=== PATIENT | female | born 1975 | race Caucasian/White ===

== ENCOUNTER 2018-02-17 16:15 | Inpatient (IN) | payer MEDICAID, OTHER ==
[2018-02-17 16:59] LABS: URINE SOURCE CLEAN C
[2018-02-17 17:06] LABS: URINE BILIRUBIN LARGE (NEGATIVE); URINE BLOOD NEGATIVE (NEGATIVE); URINE GLUCOSE (UA) 100 mg/dL (NEGATIVE); URINE KETONE 15 mg/dL (NEGATIVE); URINE LEUKOCYTE ESTERASE TRACE (NEGATIVE); URINE MICROSCOPIC INDICATED? YES; URINE NITRATE POSITIVE (NEGATIVE); URINE PH 6.5 (4.6 - 8.0); URINE PROTEIN 100 mg/dL (NEGATIVE)
[2018-02-17 17:07] LABS: HEMATOCRIT 33.2 % (41.0-60); HEMOGLOBIN 11.6 gm/dL (12-16); MEAN CELL VOLUME 95.8 fl (81-100); MEAN CORPUSCULAR HEMOGLOBIN 33.5 pg (27.0-31.0); MEAN PLATELET VOLUME 7.4 fl; PLATELET COUNT 390 Th/cmm (150-400); RED BLOOD COUNT 3.47 Mil/cmm (3.80-5.10); RED CELL DISTRIBUTION WIDTH 18.8 % (11.5-20.0)
[2018-02-17 17:14] LABS: URINE CLARITY HAZY (CLEAR); URINE COLOR ORANGE
[2018-02-17 17:15] LABS: URINE BACTERIA 3+ /hpf (NONE SEEN); URINE EPITHELIAL CELLS MODERATE /lpf (FEW); URINE RBC 0-2 /hpf (0-5)
[2018-02-17 17:17] LABS: WHITE BLOOD COUNT 21.4 Th/cmm (4.8-10.8)
[2018-02-17 17:22] LABS: ALB/GLOB RATIO 0.7 (1.0-1.8); ALBUMIN 2.6 gm/dL (3.7-5.3); ALKALINE PHOSPHATASE 179 U/L (34-104); AMYLASE SERUM 16 U/L (29-103); ANION GAP 11.2 (7.0-16.0); BUN - UREA NITROGEN 5 mg/dL (7-25); CALCIUM SERUM 8.2 mg/dL (8.6-10.3); CARBON DIOXIDE 21.5 mEq/L (21.0-31.0); CHLORIDE 104 mEq/L (98-107); CREATININE - SERUM 0.5 mg/dL (0.6-1.2); GFR AFRICAN-AMERICAN > 60.0 ml/min (>90); GFR NON AFRICAN-AMERICAN > 60.0 ml/min; GLUCOSE 130 mg/dL (70-105); LIPASE 17 U/L (11-82); MAGNESIUM 2.1 mg/dL (1.9-2.7); PHOSPHOROUS 2.1 mg/dL (2.5-5.0); SGOT 111 U/L (13-39); SGPT/ALT 20 U/L (7-52); SODIUM SERUM 134 mEq/L (136-145); TOTAL PROTEIN,SERUM 6.2 gm/dL (6.0-8.3)
[2018-02-17 17:26] LABS: POTASSIUM SERUM 2.7 mEq/L (3.5-5.1)
[2018-02-17 17:27] LABS: BAND NEUTROPHILE 11 % (0-10); EOSINOPHIL 3 % (0-5); LYMPHOCYTE 6 % (20-50); MONOCYTE 3 % (2-10); NEUTROPHILS 77 % (40-80)
[2018-02-17 17:30] LABS: AMPHETAMINE URINE NEGATIVE (NEGATIVE); BARBITURATES URINE NEGATIVE (NEGATIVE); BENZODIAZEPINES QUAL URINE NEGATIVE (NEGATIVE); CANNABINOID THC NEGATIVE (NEGATIVE); COCAINE METABOLITE QUAL URINE NEGATIVE (NEGATIVE); METHADONE URINE NEGATIVE (NEGATIVE); METHAMPHETAMINES QUAL URINE NEGATIVE (NEGATIVE); OPIATES (MORPHINE) QUAL. URINE NEGATIVE (NEGATIVE); PHENCYCLIDINE (PCP) URINE NEGATIVE (NEGATIVE); TRICYCLICS (TCA) QUAL. URINE NEGATIVE (NEGATIVE)
[2018-02-17] MEDS ORDERED: Potassium Chloride 20 mEq ER Tab PO ONE ×4 (17:33→20:35)
[2018-02-17] MEDS ORDERED: cefTRIAXone 1 GM in Sodium Chloride 0.9% 50 ML IV ONE (17:34)
[2018-02-17] MEDS ORDERED: Multivitamin Inj 10 ML, Thiamine HCL 100 MG, Magnesium Sulfate 2 GM, Folic Acid 1 MG in... IV ONE (18:02)
[2018-02-17] MEDS ORDERED: IOHEXOL 350mgI/mL 100mL Bottle IVP ONE (18:39)
--- NOTE | 2018-02-17 19:33 | ED Physician Chart ---
ED Chief Complaint/HPI - Patient Information Date Seen:: 02/17/18 Time Seen:: 16:27 Chief Complaint:: abd pain, constipation History of Present Illness:: abd pain, constipation in a cirrhotic who stopped drinking a month ago. Allergies:: Allergies Allergy/AdvReac Type Severity Reaction Status Date / Time No Known Allergies Allergy Verified 02/17/18 16:27 Vitals:: Vital Signs - 8 hr 02/17/18 16:27 Temp 98.9 F HR 94 RR 21 BP 107/70 O2 Sat % 96 Historian:: Patient, Family Member Review:: Nurse's Note Reviewed ED Review of Systems - Review of Systems General/Constitutional: No fever, No chills, No weight loss, No weakness, No diaphoresis, No edema, No loss of appetite Skin: No skin lesions, No rash, No bruising Head: No headache, No light-headedness Eyes: No loss of vision, No pain, No diplopia ENT: No earache, No nasal drainage, No sore throat, No tinnitus Neck: No neck pain, No swelling, No thyromegaly, No stiffness, No mass noted Cardio Vascular: No chest pain, No palpitations, No PND, No orthopnea, No edema Pulmonary: SOB GI: Pain, Constipation G/U: No dysuria, No frequency, No hematuria Musculoskeletal: No bone or joint pain, No back pain, No muscle pain Endocrine: No polyuria, No polydipsia Psychiatric: No prior psych history, No depression, No anxiety, No suicidal ideation Hematopoietic: No bruising, No lymphadenopathy Allergic/Immuno: No urticaria, No angioedema Neurological: No syncope, No focal symptoms, No weakness, No paresthesia, No headache, No seizure, No dizziness, No confusion, No vertigo ED Past Medical History - Past Medical History Obtainable: Yes Past Medical History: Other (cirrhosis; alcoholism (stopped drinking a month ago )) Family Medical History - Family Member Mother History Unknown: Yes ED Physical Exam - Physical Examination General/Constitutional: Awake, Alert, No distress, GCS 15, Ambulatory Other Gen/Cons comments:: icteric sclerae. Jaundiced skin. Head: Atraumatic Eyes: Lids, conjuctiva normal, PERRL, EOMI Skin: No rash, No skin lesions, No ecchymosis, Well hydrated, No lymphadenopathy Other Skin comments:: jaundice. ENMT: External ears, nose nl Neck: Nontender, Full ROM w/o pain, No JVD, No nuchal rigidity, No bruit, No mass, No stridor Respiratory: Nl effort/Exclusion, Clear to Auscultation, No Wheeze/Rhonchi/Rales Cardio Vascular: RRR, No murmur, gallop, rubs, NL S1 S2 Other GI comments:: Distended abdomen with an obvious fluid wave. Liver is about 4 to 6 inches below the right costal margin. Diffuse abdominal pain to palpation. : No CVA tenderness Extremities: No tenderness or effusion, Full ROM, normal strength in all extremities, No edema, Normal digits & nails Neuro/Psych: Alert/oriented, Normal sensory exam, Normal motor strength, Judgement/insight normal, Mood normal, Normal gait, No focal deficits Other Neuro/Psych comments:: no evidence of delirium tremens. Misc: Normal back, No paraspinal tenderness ED Labs/Radiology/EKG Results - Lab Results Results: Laboratory Tests 02/17/18 02/17/18 02/17/18 16:35 16:49 16:57 WBC 21.4 H* RBC 3.47 L Hgb 11.6 L Hct 33.2 L MCV 95.8 MCH 33.5 H MCHC Differential 35.0 RDW 18.8 Plt Count 390 MPV 7.4 Add Manual Diff YES Band Neutrophils % 11 H Neutrophils (Manual) 77 Lymphocytes 6 L Monocytes 3 Eosinophils 3 D-Dimer Sodium Potassium Chloride Carbon Dioxide Anion Gap BUN Creatinine Est GFR ( Amer) Est GFR (Non-Af Amer) BUN/Creatinine Ratio Glucose Whole Bld Lactic Acid Calcium Phosphorus Magnesium Total Bilirubin AST ALT Alkaline Phosphatase Total Protein Albumin Globulin Albumin/Globulin Ratio Amylase Lipase Urine Source CLEAN C Urine Color ORANGE Urine Clarity HAZY Urine pH 6.5 Ur Specific [place] 1.020 Urine Protein 100 H Urine Glucose (UA) 100 H Urine Ketones 15 H Urine Blood NEGATIVE Urine Nitrate POSITIVE H Urine Bilirubin LARGE H Urine Ictotest Not Reportable Urine Urobilinogen 1.0 Ur Leukocyte Esterase TRACE H Urine RBC 0-2 Urine WBC 6-10 H Ur Epithelial Cells MODERATE Urine Bacteria 3+ H Urine Mucus MODERATE Urine Test Urine Opiates Screen NEGATIVE Urine Methadone Screen NEGATIVE Ur Barbiturates Screen NEGATIVE Ur Tricyclics Screen NEGATIVE Ur Phencyclidine Scrn NEGATIVE Amphetamines Screen NEGATIVE U Methamphetamines Scrn NEGATIVE U Benzodiazepines Scrn NEGATIVE U Cocaine Metab Screen NEGATIVE U Cannabinoids Screen NEGATIVE Ethyl Alcohol 02/17/18 02/17/18 02/17/18 16:57 16:57 16:57 WBC RBC Hgb Hct MCV MCH MCHC Differential RDW Plt Count MPV Add Manual Diff Band Neutrophils % Neutrophils (Manual) Lymphocytes Monocytes Eosinophils D-Dimer 783 H Sodium 134 L Potassium 2.7 L* Chloride 104 Carbon Dioxide 21.5 Anion Gap 11.2 BUN 5 L Creatinine 0.5 L Est GFR ( Amer) > 60.0 Est GFR (Non-Af Amer) > 60.0 BUN/Creatinine Ratio 10.0 Glucose 130 H Whole Bld Lactic Acid 2.28 H* Calcium 8.2 L Phosphorus 2.1 L Magnesium 2.1 Total Bilirubin 9.0 H AST 111 H ALT 20 Alkaline Phosphatase 179 H Total Protein 6.2 Albumin 2.6 L Globulin 3.6 Albumin/Globulin Ratio 0.7 L Amylase 16 L Lipase 17 Urine Source Urine Color Urine Clarity Urine pH Ur Specific [place] Urine Protein Urine Glucose (UA) Urine Ketones Urine Blood Urine Nitrate Urine Bilirubin Urine Ictotest Urine Urobilinogen Ur Leukocyte Esterase Urine RBC Urine WBC Ur Epithelial Cells Urine Bacteria Urine Mucus Urine Test Urine Opiates Screen Urine Methadone Screen Ur Barbiturates Screen Ur Tricyclics Screen Ur Phencyclidine Scrn Amphetamines Screen U Methamphetamines Scrn U Benzodiazepines Scrn U Cocaine Metab Screen U Cannabinoids Screen Ethyl Alcohol 02/17/18 02/17/18 16:57 17:40 WBC RBC Hgb Hct MCV MCH MCHC Differential RDW Plt Count MPV Add Manual Diff Band Neutrophils % Neutrophils (Manual) Lymphocytes Monocytes Eosinophils D-Dimer Sodium Potassium Chloride Carbon Dioxide Anion Gap BUN Creatinine Est GFR ( Amer) Est GFR (Non-Af Amer) BUN/Creatinine Ratio Glucose Whole Bld Lactic Acid Calcium Phosphorus Magnesium Total Bilirubin AST ALT Alkaline Phosphatase Total Protein Albumin Globulin Albumin/Globulin Ratio Amylase Lipase Urine Source Urine Color Urine Clarity Urine pH Ur Specific [place] Urine Protein Urine Glucose (UA) Urine Ketones Urine Blood Urine Nitrate Urine Bilirubin Urine Ictotest Urine Urobilinogen Ur Leukocyte Esterase Urine RBC Urine WBC Ur Epithelial Cells Urine Bacteria Urine Mucus Urine Test NEGATIVE Urine Opiates Screen Urine Methadone Screen Ur Barbiturates Screen Ur Tricyclics Screen Ur Phencyclidine Scrn Amphetamines Screen U Methamphetamines Scrn U Benzodiazepines Scrn U Cocaine Metab Screen U Cannabinoids Screen Ethyl Alcohol < 10 ED Assessment - Assessment General Assessment: resting comfortably. Assessment/Comments:: sign out given to Dr. Ríos at 7:30 p.m. to check the chest and abdominal pelvic ct scans. ED Septic Shock - . Is Septic Shock (SBP<90, OR Lactate>4 mmol\L) present?: No - <6hrs of presentation: Vital Signs: Vital Signs - 8 hr 02/17/ 16:27 Temp 98.9 F HR 94 RR 21 BP 107/70 O2 Sat % 96 ED Reassessment (Disposition) - Diagnosis Diagnosis:: Spontaneous bacterial peritonitis Leukocytosis UTI Cirrhosis End stage liver disease
[2018-02-17] MEDS ORDERED: Ciprofloxacin 400mg Premix PB 400 MG/200 ML BAG IV ONE ×2 (19:36→20:37)
[2018-02-17] MEDS ORDERED: Thiamine 100 mg/mL 2mL Vial ONE (22:26)
[2018-02-17] MEDS ORDERED: Magnesium Sulfate 1 gm/2 mL 2mL Vial IV ONE (22:27)
[2018-02-17] MEDS ORDERED: Multivitamin Inj 10 mL Vial IV ONE (22:28)
[2018-02-17 23:42] LABS: TROP I 0.02 ng/mL (0.01-0.05)
[2018-02-18 05:52] VITALS: BP 93/56
[2018-02-18 07:09] LABS: ALB/GLOB RATIO 0.7 (1.0-1.8); ALBUMIN 2.2 gm/dL (3.7-5.3); ALKALINE PHOSPHATASE 156 U/L (34-104); ANION GAP 7.8 (7.0-16.0); BILIRUBIN,TOTAL 8.3 mg/dL (0.3-1.0); BUN - UREA NITROGEN 4 mg/dL (7-25); CALCIUM SERUM 7.6 mg/dL (8.6-10.3); CARBON DIOXIDE 23.5 mEq/L (21.0-31.0); CHLORIDE 107 mEq/L (98-107); CREATININE - SERUM 0.5 mg/dL (0.6-1.2); GFR AFRICAN-AMERICAN > 60.0 ml/min (>90); GFR NON AFRICAN-AMERICAN > 60.0 ml/min; GLUCOSE 111 mg/dL (70-105); POTASSIUM SERUM 3.3 mEq/L (3.5-5.1); SGOT 97 U/L (13-39); SGPT/ALT 19 U/L (7-52); SODIUM SERUM 135 mEq/L (136-145); TOTAL PROTEIN,SERUM 5.5 gm/dL (6.0-8.3)
[2018-02-18 07:10] LABS: HEMATOCRIT 30.8 % (41.0-60); HEMOGLOBIN 10.8 gm/dL (12-16); MEAN CELL VOLUME 96.2 fl (81-100); MEAN CORPUSCULAR HEMOGLOBIN 33.7 pg (27.0-31.0); MEAN CORPUSCULAR HGB CONC 35.1 pg (28.0-36.0); MEAN PLATELET VOLUME 7.6 fl; PLATELET COUNT 357 Th/cmm (150-400); RED BLOOD COUNT 3.21 Mil/cmm (3.80-5.10); RED CELL DISTRIBUTION WIDTH 18.9 % (11.5-20.0)
[2018-02-18 07:18] LABS: WHITE BLOOD COUNT 19.7 Th/cmm (4.8-10.8)
[2018-02-18 07:58] LABS: BAND NEUTROPHILE 5 % (0-10); BASOPHIL 1 % (0-3); LYMPHOCYTE 7 % (20-50); MONOCYTE 6 % (2-10); NEUTROPHILS 81 % (40-80); PLATELET ESTIMATE ADEQUATE (NORMAL)
--- NOTE | 2018-02-18 09:34 | Diagnostic Imaging Report ---
Chest x-ray single view History: Shortness of breath The heart size is normal. No focal pulmonary parenchymal processes. No hilar or mediastinal abnormalities. Impression: No acute abnormalities
--- NOTE | 2018-02-18 09:36 | Diagnostic Imaging Report ---
CT angiogram of the chest with intravenous contrast (CTA) Total DLP equals 204 CTDI equals 11.0 Following administration of intravenous contrast, axial sections were obtained from a level above the clavicles down to level below the diaphragm. The heart size is normal. There is normal opacification the main, right, and left pulmonary arteries. No intraluminal filling defects are seen. Specifically, no evidence of pulmonary embolism. The hilar regions are unremarkable. No abnormal focal pulmonary parenchymal processes. IMPRESSION: 1. No acute abnormalities. Specifically, no evidence of pulmonary embolism.
--- NOTE | 2018-02-18 09:37 | Diagnostic Imaging Report ---
CT scan abdomen and pelvis without intravenous contrast HISTORY: Pain Total DLP equals 520 CTDI equals 9.0 Axial sections were obtained from the xiphoid process down to the pubic symphysis. The liver is enlarged. There is a generalized decrease in overall hepatic parenchymal density consistent with fatty infiltration and should be correlated with liver function tests. No focal lesions. The spleen is enlarged. There appears to be a contracted gallbladder. Suggestion of a small amount of pericholecystic fluid. Significance should correlated clinically. No focal abnormality seen within the pancreas. No focal renal lesions. The exam of the pelvis demonstrates small to moderate free fluid in cul-de-sac area. The findings should be correlated clinically and with menstrual status. IMPRESSION: 1. Hepatomegaly along with findings consistent with fatty infiltration 2. Somewhat contracted gallbladder with questionable pericholecystic fluid. The finding should be correlated clinically and with sonography if needed. 3. Small to moderate free fluid within the cul-de-sac region of the pelvis. The findings may be on a physiologic basis and should be correlated clinically and with the menstrual status.
[2018-02-18] MEDS ORDERED: Potassium Chloride 20 mEq ER Tab PO ONE (12:31)
[2018-02-18] MEDS: Pantoprazole 40 mg EC Tab PO SCH (15:33)
--- NOTE | 2018-02-18 15:40 | History & Physical ---
ADMIT DATE: 02/18/2018 PATIENT IDENTIFICATION: A 42-year-old female. CHIEF COMPLAINT: Abdominal pain and vomiting. HISTORY OF PRESENT ILLNESS: A 42-year-old Afghan female with longstanding of alcohol abuse, quit drinking alcohol approximately a month ago, presented to Emergency Room for evaluation of persistent abdominal pain with vomiting. The patient was worked up in the Emergency Room, noted to have significant amount of ascites with abnormal liver function tests. The patient was also noted to have hepatomegaly. The patient is now being admitted to the hospital for further treatment. PAST MEDICAL HISTORY: Remarkable for chronic alcohol use, related to liver disease. Negative for diabetes, kidney disease, or thyroid disease. MEDICATIONS AT HOME: The patient is not taking any medicine. ALLERGIES: The patient is not allergic to medications. SOCIAL HISTORY: She has moved from [place] to [place]. The patient has no history of smoking cigarette. The patient denies any drug use. FAMILY MEDICAL HISTORY: Remarkable for hypertension. REVIEW OF SYSTEMS: The patient continues to have abdominal discomfort and vomiting and numbness on the leg. Otherwise, denies any chest pain, shortness of breath, palpitation, dizziness, nausea, vomiting, diarrhea, dysuria, hematuria, hematochezia, or melena. No seizure or syncopal episode. PHYSICAL EXAMINATION: GENERAL: Alert, awake, oriented, lying in the bed without any acute distress. VITAL SIGNS: Temperature 97.4, pulse 78, respiratory rate 18, blood pressure 106/67. HEENT: Normocephalic, atraumatic. Extraocular muscles are intact. Tongue was pink and coated. Sclerae with icterus. No oral lesion, no exudate. NECK: Supple, no JVD. No hepatojugular reflex. No lymphadenopathy, thyromegaly, or carotid bruit. HEART: Both heart sounds are regular. No S3, no S4, no murmur. CHEST: Lung equal in expansion, no expiratory wheezing. ABDOMEN: Distended with palpable hepatomegaly and ascites noted. Bowel sounds are present. EXTREMITIES: No edema. Pulses +2. No calf tenderness. NEUROLOGIC: Nonfocal. AVAILABLE DIAGNOSTIC DATA: Performed in the Emergency Room, white count of 21.4, hemoglobin 11.6, platelet count of 390. D-dimer 888. Potassium of 2.7, BUN and creatinine is 5 and 0.5. Liver functions, total bilirubin of 9, AST, ALT is 111 and 20 with alkaline phosphatase of 179, ammonia of 55. Amylase and lipase are within normal limit. CT scan of the abdomen and pelvis has been reviewed. CLINICAL IMPRESSION: 1. Most likely alcoholic hepatitis, cannot rule out cirrhosis of liver. 2. Ascites, etiology needs to determine. 3. Leukocytosis. 4. Electrolyte imbalance. 5. Urinary tract infection. 6. Normocytic normochromic anemia. PLAN: 1. Admit this patient to Med/Surg floor. 2. IV fluid. 3. IV antibiotic. 4. GI consult. 5. Ultrasound-guided paracentesis. 6. Correct electrolytes. 7. Follow lab. 8. Follow consult and recommendation. 9. Care plan reviewed and discussed with staff. 10. Further recommendation will be given based on other diagnostic data are available. Care plan has been reviewed and discussed with staff. JOB# [id number]
[2018-02-18] MEDS: cefTRIAXone 1 GM in Sodium Chloride 0.9% 50 ML IV SCH (20:37)
--- NOTE | 2018-02-19 05:09 | Consultation ---
DATE OF CONSULTATION: 02/18/2018 GI CONSULTATION ATTENDING PHYSICIAN: Dr. Bae. CONSULTING PHYSICIAN: Dr. Luiz Pettit. REASON FOR CONSULTATION: Abnormal liver function test, history of alcohol abuse and ascites. HISTORY OF PRESENT ILLNESS: This is a 42-year-old female who is seen through the courtesy of Dr. Bae. This patient was admitted via the Emergency Room with a history of abdominal discomfort and distention. The patient was found to have jaundice and abnormal liver function test. Apparently, a white count is also high and on the CT scan, there is a presence of ascites. This patient used to have heavy alcohol intake until the patient quit about one month ago. There is no history of GI bleeding. No history of rectal bleeding. PAST MEDICAL HISTORY AND SOCIAL HISTORY: The patient does not smoke, but has been drinking until she quit 1 month ago. No history of diabetes mellitus. No history of hypertension. MEDICATIONS: Please see the list in the chart. PAST SURGICAL HISTORY: No significant surgeries. ALLERGIES: The patient is not allergic to any medication. PHYSICAL EXAMINATION: GENERAL: The patient is a moderately built female who is in no acute distress at this time. VITAL SIGNS: Temperature is 98, respiratory rate is 18, blood pressure is 130/70, pulse is 82. HEENT: Head is normocephalic. Pupils are reactive to light. Conjunctivae are pink. There is scleral icterus. Throat is clear. NECK: Supple. No JV distention, no mass. LUNGS: Reveal no rales or rhonchi. CARDIOVASCULAR: Revealed normal sinus rhythm. No evidence of any murmur. ABDOMEN: Soft, slightly distended, mild tenderness in the epigastric area. No rebound tenderness. Intestinal sounds are present. LABORATORY DATA: White count is 21.4, hemoglobin is 11.6, hematocrit 33.2, and 11% bands. Chemistry: Potassium is 2.7 and BUN is 10 and total bilirubin is 9, AST is 111, ALT 20, alkaline phosphatase is 179. IMPRESSION: 1. Alcoholic liver disease, possible liver cirrhosis or acute hepatitis. 2. Ascites, rule out spontaneous bacterial peritonitis. 3. Leukocytosis could be due to sepsis. RECOMMENDATION: We will continue the patient on IV antibiotics and will pursue with the paracentesis and also will do the cultures and WBC and cytology and the patient is advised to avoid any alcohol and will follow the liver function test. Thank you for the consult. Dr. Jernigan will follow this patient with you. JOB# [id number]
[2018-02-19 06:32] LABS: HEMATOCRIT 30.2 % (41.0-60); HEMOGLOBIN 10.5 gm/dL (12-16); MEAN CELL VOLUME 96.2 fl (81-100); MEAN CORPUSCULAR HEMOGLOBIN 33.4 pg (27.0-31.0); MEAN CORPUSCULAR HGB CONC 34.8 pg (28.0-36.0); MEAN PLATELET VOLUME 7.5 fl; PLATELET COUNT 344 Th/cmm (150-400); RED BLOOD COUNT 3.14 Mil/cmm (3.80-5.10); RED CELL DISTRIBUTION WIDTH 19.3 % (11.5-20.0)
[2018-02-19 06:46] LABS: WHITE BLOOD COUNT 19.6 Th/cmm (4.8-10.8)
[2018-02-19 06:47] LABS: ALB/GLOB RATIO 0.7 (1.0-1.8); ALBUMIN 2.2 gm/dL (3.7-5.3); ALKALINE PHOSPHATASE 176 U/L (34-104); ANION GAP 9.7 (7.0-16.0); BILIRUBIN,TOTAL 8.2 mg/dL (0.3-1.0); BUN - UREA NITROGEN 4 mg/dL (7-25); CALCIUM SERUM 7.8 mg/dL (8.6-10.3); CARBON DIOXIDE 21.6 mEq/L (21.0-31.0); CHLORIDE 106 mEq/L (98-107); CREATININE - SERUM 0.5 mg/dL (0.6-1.2); GFR AFRICAN-AMERICAN > 60.0 ml/min (>90); GFR NON AFRICAN-AMERICAN > 60.0 ml/min; GLUCOSE 92 mg/dL (70-105); POTASSIUM SERUM 3.3 mEq/L (3.5-5.1); SGOT 101 U/L (13-39); SGPT/ALT 18 U/L (7-52); SODIUM SERUM 134 mEq/L (136-145); TOTAL PROTEIN,SERUM 5.3 gm/dL (6.0-8.3)
[2018-02-19 07:29] LABS: NEUTROPHILS 85 % (40-80)
[2018-02-19 07:30] LABS: BAND NEUTROPHILE 7 % (0-10); BASOPHIL 1 % (0-3); LYMPHOCYTE 5 % (20-50); MONOCYTE 2 % (2-10); PLATELET ESTIMATE ADEQUATE (NORMAL)
[2018-02-19] MEDS: Pantoprazole 40 mg EC Tab PO SCH (08:34)
[2018-02-19] MEDS ORDERED: Pantoprazole 40 mg EC Tab PO SCH (09:00)
[2018-02-19] MEDS ORDERED: guaiFENesin 200 MG/10 ML UDC PO PRN (12:10)
[2018-02-19] MEDS ORDERED: Anusol Supp RC PRN (12:21)
[2018-02-19] MEDS ORDERED: Potassium Chloride 20 mEq ER Tab PO ONE (21:00)
[2018-02-19] MEDS: cefTRIAXone 1 GM in Sodium Chloride 0.9% 50 ML IV SCH (21:06)
[2018-02-19] MEDS: Guaifenesin DM 10 ML UDC PO PRN (22:49)
[2018-02-20 06:57] LABS: INR 1.21 (0.5-1.4); PROTHROMBIN TIME (TEST) 12.5 SECONDS (9.5-11.5)
[2018-02-20 07:10] LABS: HEMATOCRIT 29.7 % (41.0-60); HEMOGLOBIN 10.4 gm/dL (12-16); MEAN CELL VOLUME 96.9 fl (81-100); MEAN CORPUSCULAR HEMOGLOBIN 33.8 pg (27.0-31.0); MEAN CORPUSCULAR HGB CONC 34.8 pg (28.0-36.0); MEAN PLATELET VOLUME 7.8 fl; PLATELET COUNT 334 Th/cmm (150-400); RED BLOOD COUNT 3.07 Mil/cmm (3.80-5.10); RED CELL DISTRIBUTION WIDTH 18.8 % (11.5-20.0)
[2018-02-20 07:12] LABS: ALB/GLOB RATIO 0.7 (1.0-1.8); ALBUMIN 2.1 gm/dL (3.7-5.3); ALKALINE PHOSPHATASE 181 U/L (34-104); ANION GAP 8.1 (7.0-16.0); BILIRUBIN,TOTAL 8.2 mg/dL (0.3-1.0); BUN - UREA NITROGEN 5 mg/dL (7-25); CALCIUM SERUM 7.9 mg/dL (8.6-10.3); CARBON DIOXIDE 24.3 mEq/L (21.0-31.0); CHLORIDE 108 mEq/L (98-107); CREATININE - SERUM 0.5 mg/dL (0.6-1.2); GFR AFRICAN-AMERICAN > 60.0 ml/min (>90); GFR NON AFRICAN-AMERICAN > 60.0 ml/min; GLUCOSE 73 mg/dL (70-105); POTASSIUM SERUM 3.4 mEq/L (3.5-5.1); SGOT 104 U/L (13-39); SGPT/ALT 19 U/L (7-52); SODIUM SERUM 137 mEq/L (136-145); TOTAL PROTEIN,SERUM 5.3 gm/dL (6.0-8.3)
[2018-02-20 07:29] LABS: WHITE BLOOD COUNT 17.1 Th/cmm (4.8-10.8)
[2018-02-20 07:53] LABS: BAND NEUTROPHILE 10 % (0-10); BASOPHIL 0 % (0-3); EOSINOPHIL 2 % (0-5); LYMPHOCYTE 4 % (20-50); MONOCYTE 4 % (2-10); NEUTROPHILS 80 % (40-80)
[2018-02-20 07:54] LABS: PLATELET ESTIMATE ADEQUATE (NORMAL)
[2018-02-20] MEDS: Pantoprazole 40 mg EC Tab PO SCH (08:44)
[2018-02-20] MEDS: Guaifenesin DM 10 ML UDC PO PRN ×2 (08:58→18:15)
--- NOTE | 2018-02-20 10:13 | Progress Notes ---
DATE: 02/19/2018 IDENTIFICATION: A 42-year-old female. SUBJECTIVE: The patient seen and examined. The patient is complaining about pain earlier, better with IV Toradol, RN reports the patient is coughing. The patient is scheduled to have ultrasound-guided paracentesis tomorrow. PHYSICAL EXAMINATION: VITAL SIGNS: Temperature 97.8, pulse is 77, respiratory rate is 18, blood pressure 104/55. HEENT: No facial asymmetry. NECK: Supple, no JVD. HEART: Regular. CHEST AND LUNGS: Equal in expansion, no expiratory wheezing. ABDOMEN: Soft. Ascites noted. EXTREMITIES: No edema. CLINICAL IMPRESSION: 1. Ascites. 2. Hepatomegaly. 3. Cough, congestion, probably from bronchitis. 4. Degenerative joint disease. 5. History of alcoholism. PLAN: 1. Correct plan provide symptomatic therapy. 2. Paracentesis. 3. Continue IV antibiotic. 4. General nursing care. 5. Care plan reviewed and discussed. JOB# [id number]
--- NOTE | 2018-02-20 16:44 | Progress Notes ---
DATE: IDENTIFICATION: This is a 42-year-old female. SUBJECTIVE: The patient seen and examined. The patient is lying in the bed. The patient is watching a TV and playing with her phone. The patient was supposed to have a paracentesis, though discussed with the radiologist and noted that [id number] free fluid in the cul-de-sac region was noted. Otherwise, no significant ascites. The patient has pain and she is requiring pain medication. PHYSICAL EXAMINATION: On today's exam; VITAL SIGNS: Temperature 96.8, pulse 90, respiratory rate 18, and blood pressure 106/52. HEENT: Poor dentition. NECK: Supple. HEART: Regular. LUNGS: Clear. ABDOMEN: Soft, palpable hepatomegaly noted. Bowel sounds are present. EXTREMITIES: No edema. AVAILABLE DIAGNOSTIC DATA: White count of 17.1, hemoglobin of 10.4, and platelet count of 334. Sodium 137, potassium 3.4, chloride 108, and CO2 24.3. BUN and creatinine 5 and 0.5. AST, ALT, and bilirubin was 104, 19, and 8.2. Alkaline phosphatase of 181. CLINICAL IMPRESSION: 1. Complicated urinary tract infection. 2. Alcoholic hepatitis, most likely. 3. Leukocytosis. 4. Normocytic normochromic anemia. 5. Minimal fluid on the cul-de-sac area. PLAN: Discussed with the Radiologist, recommended not to pursue any paracenteses at this time since there is no significant fluid. Meanwhile, we will continue with Rocephin along with Protonix and symptoms management. We will follow the lab and will have outpatient followup on her ultrasound in 4-6 weeks and see if the patient has significant ascites, which can be drained in the future. Care plan has been reviewed and discussed with the patient in length. JOB# [id number]
[2018-02-20] MEDS: cefTRIAXone 1 GM in Sodium Chloride 0.9% 50 ML IV SCH (20:40)
--- NOTE | 2018-02-20 21:27 | GI Progress Note ---
Subjective - Review of Systems Service Date: 02/20/18 Events since last encounter: no events, reviewed note from Dr Mclean Subjective: No events, reviewed note from Dr Mclean Objective - Results Result Diagrams: 02/20/18 05:45 02/20/18 05:45 Recent Labs: Laboratory Last Values WBC 17.1 Th/cmm (4.8-10.8) H 02/20/18 05:45 RBC 3.07 Mil/cmm (3.80-5.10) L 02/20/18 05:45 Hgb 10.4 gm/dL (12-16) L 02/20/18 05:45 Hct 29.7 % (41.0-60) L 02/20/18 05:45 MCV 96.9 fl (81-100) 02/20/18 05:45 MCH 33.8 pg (27.0-31.0) H 02/20/18 05:45 MCHC Differential 34.8 pg (28.0-36.0) 02/20/18 05:45 RDW 18.8 % (11.5-20.0) 02/20/18 05:45 Plt Count 334 Th/cmm (150-400) 02/20/18 05:45 MPV 7.8 fl 02/20/18 05:45 Add Manual Diff YES 02/20/18 05:45 Band Neutrophils % 10 % (0-10) 02/20/18 05:45 Neutrophils (Manual) 80 % (40-80) 02/20/18 05:45 Lymphocytes 4 % (20-50) L 02/20/18 05:45 Monocytes 4 % (2-10) 02/20/18 05:45 Eosinophils 2 % (0-5) 02/20/18 05:45 Basophils 0 % (0-3) 02/20/18 05:45 Platelet Estimate ADEQUATE (NORMAL) 02/20/18 05:45 PT 12.5 SECONDS (9.5-11.5) H 02/20/18 05:45 INR 1.21 (0.5-1.4) 02/20/18 05:45 PTT (Actin FS) 31.0 SECONDS (26.0-38.0) 02/20/18 05:45 D-Dimer 818 ng/mL (100-400) H 02/17/18 19:22 Sodium 137 mEq/L (136-145) 02/20/18 05:45 Potassium 3.4 mEq/L (3.5-5.1) L 02/20/18 05:45 Chloride 108 mEq/L (98-107) H 02/20/18 05:45 Carbon Dioxide 24.3 mEq/L (21.0-31.0) 02/20/18 05:45 Anion Gap 8.1 (7.0-16.0) 02/20/18 05:45 BUN 5 mg/dL (7-25) L 02/20/18 05:45 Creatinine 0.5 mg/dL (0.6-1.2) L 02/20/18 05:45 Est GFR ( Amer) > 60.0 ml/min (>90) 02/20/18 05:45 Est GFR (Non-Af Amer) > 60.0 ml/min 02/20/18 05:45 BUN/Creatinine Ratio 10.0 02/20/18 05:45 Glucose 73 mg/dL (70-105) 02/20/18 05:45 Whole Bld Lactic Acid 1.11 mmol/L (0.60-1.99) 02/17/18 23:00 Calcium 7.9 mg/dL (8.6-10.3) L 02/20/18 05:45 Phosphorus 2.1 mg/dL (2.5-5.0) L 02/17/18 16:57 Magnesium 2.1 mg/dL (1.9-2.7) 02/17/18 16:57 Total Bilirubin 8.2 mg/dL (0.3-1.0) H 02/20/18 05:45 AST 104 U/L (13-39) H 02/20/18 05:45 ALT 19 U/L (7-52) 02/20/18 05:45 Alkaline Phosphatase 181 U/L (34-104) H 02/20/18 05:45 Ammonia 60 umol/L (16-53) H 02/19/18 06:05 Troponin I 0.02 ng/mL (0.01-0.05) 02/17/18 23:00 B-Natriuretic Peptide 125.0 pg/mL (5.0-100.0) H 02/17/18 19:22 Total Protein 5.3 gm/dL (6.0-8.3) L 02/20/18 05:45 Albumin 2.1 gm/dL (3.7-5.3) L 02/20/18 05:45 Globulin 3.2 gm/dL 02/20/18 05:45 Albumin/Globulin Ratio 0.7 (1.0-1.8) L 02/20/18 05:45 Amylase 16 U/L (29-103) L 02/17/18 16:57 Lipase 17 U/L (11-82) 02/17/18 16:57 Urine Source CLEAN C 02/17/18 16:35 Urine Color ORANGE 02/17/18 16:35 Urine Clarity HAZY (CLEAR) 02/17/18 16:35 Urine pH 6.5 (4.6 - 8.0) 02/17/18 16:35 Ur Specific [place] 1.020 (1.005-1.030) 02/17/18 16:35 Urine Protein 100 mg/dL (NEGATIVE) H 02/17/18 16:35 Urine Glucose (UA) 100 mg/dL (NEGATIVE) H 02/17/18 16:35 Urine Ketones 15 mg/dL (NEGATIVE) H 02/17/18 16:35 Urine Blood NEGATIVE (NEGATIVE) 02/17/18 16:35 Urine Nitrate POSITIVE (NEGATIVE) H 02/17/18 16:35 Urine Bilirubin LARGE (NEGATIVE) H 02/17/18 16:35 Urine Ictotest Not Reportable 02/17/18 16:35 Urine Urobilinogen 1.0 E.U./dL (0.2 - 1.0) 02/17/18 16:35 Ur Leukocyte Esterase TRACE (NEGATIVE) H 02/17/18 16:35 Urine RBC 0-2 /hpf (0-5) 02/17/18 16:35 Urine WBC 6-10 /hpf (0-5) H 02/17/18 16:35 Ur Epithelial Cells MODERATE /lpf (FEW) 02/17/18 16:35 Urine Bacteria 3+ /hpf (NONE SEEN) H 02/17/18 16:35 Urine Mucus MODERATE /lpf (FEW) 02/17/18 16:35 Urine Test NEGATIVE 02/17/18 17:40 Urine Opiates Screen NEGATIVE (NEGATIVE) 02/17/18 16:49 Urine Methadone Screen NEGATIVE (NEGATIVE) 02/17/18 16:49 Ur Barbiturates Screen NEGATIVE (NEGATIVE) 02/17/18 16:49 Ur Tricyclics Screen NEGATIVE (NEGATIVE) 02/17/18 16:49 Ur Phencyclidine Scrn NEGATIVE (NEGATIVE) 02/17/18 16:49 Amphetamines Screen NEGATIVE (NEGATIVE) 02/17/18 16:49 U Methamphetamines Scrn NEGATIVE (NEGATIVE) 02/17/18 16:49 U Benzodiazepines Scrn NEGATIVE (NEGATIVE) 02/17/18 16:49 U Cocaine Metab Screen NEGATIVE (NEGATIVE) 02/17/18 16:49 U Cannabinoids Screen NEGATIVE (NEGATIVE) 02/17/18 16:49 Ethyl Alcohol < 10 mg/dL (0-10) 02/17/18 16:57 - Physical Exam Vitals and I&O: Vital Signs Temp 97.2 F 02/20/18 20:00 Pulse 85 02/20/18 20:00 Resp 16 02/20/18 20:00 BP 130/78 02/20/18 20:00 Pulse Ox 97 02/20/18 20:00 Intake & Output 02/20/18 02/20/18 02/21/18 06:59 18:59 06:59 Intake Total 300 Balance 300 Weight (lbs) 63.866 kg Intake: Intake, IV Amount 50 [id number] 1 gm In 50 Sodium Chloride 0.9% 50 ml @ 100 mls/hr IV Q24HR [facility] Rx#:[id number] Oral 200 Other 50 Other: # Voids 3 Stool Characteristics Formed Weight Source Bedscale Active Medications: Current Medications Guaifenesin/Dextromethorphan (Robitussin Dm) 5 ml PO Q6HR PRN PRN Reason: Cough Stop: 04/20/18 15:56 Last Admin: 02/20/18 18:15 Dose: 5 ml Ceftriaxone Sodium 1 gm/ (Sodium Chloride) 50 mls @ 100 mls/hr IV Q24HR BRAULIO Stop: 04/19/18 20:59 Last Admin: 02/20/18 20:40 Dose: 100 mls/hr Ketorolac Tromethamine (Toradol) 30 mg IVP Q6H PRN PRN Reason: Pain (Moderate) Stop: 04/20/18 12:10 Last Admin: 02/20/18 18:15 Dose: 30 mg Ondansetron HCl (Zofran) 4 mg IV Q6H PRN PRN Reason: Nausea / Vomiting Stop: 04/19/18 02:11 Pantoprazole Sodium (Protonix) 40 mg PO DAILY BRAULIO Stop: 04/19/18 13:30 Last Admin: 02/20/18 08:44 Dose: 40 mg Starch (Anusol) 1 sup RC DAILY PRN PRN Reason: Itching Stop: 04/20/18 12:20 General: Alert, Oriented x3, Cooperative HEENT: Atraumatic, PERRLA, EOMI Neck: JVD Cardiovascular: Regular rate, Normal S1 Lungs: Clear to auscultation Abdomen: Bowel sounds Assessment/Plan - Problem List Patient Problems: All Active Problems ABDOMINAL DISTENTION WITH URINE RETENTIO (Acute) - Assessment Assessment: 42F with gallstone pancreatitis -advance diet as tolerated -Recs per surgery -supportive care Gi will sign off Thank you for allowing us to participate
--- NOTE | 2018-02-20 21:32 | GI Progress Note ---
Subjective - Review of Systems Service Date: 02/20/18 Events since last encounter: Pt with minimal ascites fluid; c/o of general abdominal pain Objective - Results Result Diagrams: 02/20/18 05:45 02/20/18 05:45 Recent Labs: Laboratory Last Values WBC 17.1 Th/cmm (4.8-10.8) H 02/20/18 05:45 RBC 3.07 Mil/cmm (3.80-5.10) L 02/20/18 05:45 Hgb 10.4 gm/dL (12-16) L 02/20/18 05:45 Hct 29.7 % (41.0-60) L 02/20/18 05:45 MCV 96.9 fl (81-100) 02/20/18 05:45 MCH 33.8 pg (27.0-31.0) H 02/20/18 05:45 MCHC Differential 34.8 pg (28.0-36.0) 02/20/18 05:45 RDW 18.8 % (11.5-20.0) 02/20/18 05:45 Plt Count 334 Th/cmm (150-400) 02/20/18 05:45 MPV 7.8 fl 02/20/18 05:45 Add Manual Diff YES 02/20/18 05:45 Band Neutrophils % 10 % (0-10) 02/20/18 05:45 Neutrophils (Manual) 80 % (40-80) 02/20/18 05:45 Lymphocytes 4 % (20-50) L 02/20/18 05:45 Monocytes 4 % (2-10) 02/20/18 05:45 Eosinophils 2 % (0-5) 02/20/18 05:45 Basophils 0 % (0-3) 02/20/18 05:45 Platelet Estimate ADEQUATE (NORMAL) 02/20/18 05:45 PT 12.5 SECONDS (9.5-11.5) H 02/20/18 05:45 INR 1.21 (0.5-1.4) 02/20/18 05:45 PTT (Actin FS) 31.0 SECONDS (26.0-38.0) 02/20/18 05:45 D-Dimer 818 ng/mL (100-400) H 02/17/18 19:22 Sodium 137 mEq/L (136-145) 02/20/18 05:45 Potassium 3.4 mEq/L (3.5-5.1) L 02/20/18 05:45 Chloride 108 mEq/L (98-107) H 02/20/18 05:45 Carbon Dioxide 24.3 mEq/L (21.0-31.0) 02/20/18 05:45 Anion Gap 8.1 (7.0-16.0) 02/20/18 05:45 BUN 5 mg/dL (7-25) L 02/20/18 05:45 Creatinine 0.5 mg/dL (0.6-1.2) L 02/20/18 05:45 Est GFR ( Amer) > 60.0 ml/min (>90) 02/20/18 05:45 Est GFR (Non-Af Amer) > 60.0 ml/min 02/20/18 05:45 BUN/Creatinine Ratio 10.0 02/20/18 05:45 Glucose 73 mg/dL (70-105) 02/20/18 05:45 Whole Bld Lactic Acid 1.11 mmol/L (0.60-1.99) 02/17/18 23:00 Calcium 7.9 mg/dL (8.6-10.3) L 02/20/18 05:45 Phosphorus 2.1 mg/dL (2.5-5.0) L 02/17/18 16:57 Magnesium 2.1 mg/dL (1.9-2.7) 02/17/18 16:57 Total Bilirubin 8.2 mg/dL (0.3-1.0) H 02/20/18 05:45 AST 104 U/L (13-39) H 02/20/18 05:45 ALT 19 U/L (7-52) 02/20/18 05:45 Alkaline Phosphatase 181 U/L (34-104) H 02/20/18 05:45 Ammonia 60 umol/L (16-53) H 02/19/18 06:05 Troponin I 0.02 ng/mL (0.01-0.05) 02/17/18 23:00 B-Natriuretic Peptide 125.0 pg/mL (5.0-100.0) H 02/17/18 19:22 Total Protein 5.3 gm/dL (6.0-8.3) L 02/20/18 05:45 Albumin 2.1 gm/dL (3.7-5.3) L 02/20/18 05:45 Globulin 3.2 gm/dL 02/20/18 05:45 Albumin/Globulin Ratio 0.7 (1.0-1.8) L 02/20/18 05:45 Amylase 16 U/L (29-103) L 02/17/18 16:57 Lipase 17 U/L (11-82) 02/17/18 16:57 Urine Source CLEAN C 02/17/18 16:35 Urine Color ORANGE 02/17/18 16:35 Urine Clarity HAZY (CLEAR) 02/17/18 16:35 Urine pH 6.5 (4.6 - 8.0) 02/17/18 16:35 Ur Specific [place] 1.020 (1.005-1.030) 02/17/18 16:35 Urine Protein 100 mg/dL (NEGATIVE) H 02/17/18 16:35 Urine Glucose (UA) 100 mg/dL (NEGATIVE) H 02/17/18 16:35 Urine Ketones 15 mg/dL (NEGATIVE) H 02/17/18 16:35 Urine Blood NEGATIVE (NEGATIVE) 02/17/18 16:35 Urine Nitrate POSITIVE (NEGATIVE) H 02/17/18 16:35 Urine Bilirubin LARGE (NEGATIVE) H 02/17/18 16:35 Urine Ictotest Not Reportable 02/17/18 16:35 Urine Urobilinogen 1.0 E.U./dL (0.2 - 1.0) 02/17/18 16:35 Ur Leukocyte Esterase TRACE (NEGATIVE) H 02/17/18 16:35 Urine RBC 0-2 /hpf (0-5) 02/17/18 16:35 Urine WBC 6-10 /hpf (0-5) H 02/17/18 16:35 Ur Epithelial Cells MODERATE /lpf (FEW) 02/17/18 16:35 Urine Bacteria 3+ /hpf (NONE SEEN) H 02/17/18 16:35 Urine Mucus MODERATE /lpf (FEW) 02/17/18 16:35 Urine Test NEGATIVE 02/17/18 17:40 Urine Opiates Screen NEGATIVE (NEGATIVE) 02/17/18 16:49 Urine Methadone Screen NEGATIVE (NEGATIVE) 02/17/18 16:49 Ur Barbiturates Screen NEGATIVE (NEGATIVE) 02/17/18 16:49 Ur Tricyclics Screen NEGATIVE (NEGATIVE) 02/17/18 16:49 Ur Phencyclidine Scrn NEGATIVE (NEGATIVE) 02/17/18 16:49 Amphetamines Screen NEGATIVE (NEGATIVE) 02/17/18 16:49 U Methamphetamines Scrn NEGATIVE (NEGATIVE) 02/17/18 16:49 U Benzodiazepines Scrn NEGATIVE (NEGATIVE) 02/17/18 16:49 U Cocaine Metab Screen NEGATIVE (NEGATIVE) 02/17/18 16:49 U Cannabinoids Screen NEGATIVE (NEGATIVE) 02/17/18 16:49 Ethyl Alcohol < 10 mg/dL (0-10) 02/17/18 16:57 - Physical Exam Vitals and I&O: Vital Signs Temp 97.2 F 02/20/18 20:00 Pulse 85 02/20/18 20:00 Resp 16 02/20/18 20:00 BP 130/78 02/20/18 20:00 Pulse Ox 97 02/20/18 20:00 Intake & Output 02/20/18 02/20/18 02/21/18 06:59 18:59 06:59 Intake Total 300 Balance 300 Weight (lbs) 63.866 kg Intake: Intake, IV Amount 50 cefTRIAXone 1 gm In 50 Sodium Chloride 0.9% 50 ml @ 100 mls/hr IV Q24HR [facility] Rx#:[id number] Oral 200 Other 50 Other: # Voids 3 Stool Characteristics Formed Weight Source Bedscale Active Medications: Current Medications Guaifenesin/Dextromethorphan (Robitussin Dm) 5 ml PO Q6HR PRN PRN Reason: Cough Stop: 04/20/18 15:56 Last Admin: 02/20/18 18:15 Dose: 5 ml Ceftriaxone Sodium 1 gm/ (Sodium Chloride) 50 mls @ 100 mls/hr IV Q24HR BRAULIO Stop: 04/19/18 20:59 Last Admin: 02/20/18 20:40 Dose: 100 mls/hr Ketorolac Tromethamine (Toradol) 30 mg IVP Q6H PRN PRN Reason: Pain (Moderate) Stop: 04/20/18 12:10 Last Admin: 02/20/18 18:15 Dose: 30 mg Ondansetron HCl (Zofran) 4 mg IV Q6H PRN PRN Reason: Nausea / Vomiting Stop: 04/19/18 02:11 Pantoprazole Sodium (Protonix) 40 mg PO DAILY BRAULIO Stop: 04/19/18 13:30 Last Admin: 02/20/18 08:44 Dose: 40 mg Starch (Anusol) 1 sup RC DAILY PRN PRN Reason: Itching Stop: 04/20/18 12:20 General: Alert, Oriented x3, Cooperative HEENT: Atraumatic, PERRLA, EOMI Neck: JVD Cardiovascular: Regular rate, Normal S1 Lungs: Clear to auscultation Abdomen: Bowel sounds Assessment/Plan - Problem List Patient Problems: All Active Problems ABDOMINAL DISTENTION WITH URINE RETENTIO (Acute) - Assessment Assessment: 42 yo F with acute alcoholic hepatitis 1. alcoholic Hepatitis 2. Ascites 3. Probable Liver Cirrhosis -D/w lenght about condition -stop alcohol -can d/c with small doses of diuretics but ascites should improve if she abstains from alcohol -empirically on antibiotics -Jen DF<32 - no role for steroids
[2018-02-21] MEDS: Guaifenesin DM 10 ML UDC PO PRN ×3 (00:26→13:37)
[2018-02-21 06:34] LABS: HEMATOCRIT 30.1 % (41.0-60); HEMOGLOBIN 10.6 gm/dL (12-16); MEAN CELL VOLUME 97.5 fl (81-100); MEAN CORPUSCULAR HEMOGLOBIN 34.2 pg (27.0-31.0); MEAN CORPUSCULAR HGB CONC 35.1 pg (28.0-36.0); MEAN PLATELET VOLUME 7.5 fl; PLATELET COUNT 360 Th/cmm (150-400); RED BLOOD COUNT 3.09 Mil/cmm (3.80-5.10); RED CELL DISTRIBUTION WIDTH 19.7 % (11.5-20.0)
[2018-02-21 07:37] LABS: ALB/GLOB RATIO 0.6 (1.0-1.8); ALBUMIN 2.1 gm/dL (3.7-5.3); ALKALINE PHOSPHATASE 190 U/L (34-104); ANION GAP 9.5 (7.0-16.0); BILIRUBIN,TOTAL 8.2 mg/dL (0.3-1.0); BUN - UREA NITROGEN 8 mg/dL (7-25); CALCIUM SERUM 8.1 mg/dL (8.6-10.3); CARBON DIOXIDE 23.9 mEq/L (21.0-31.0); CHLORIDE 106 mEq/L (98-107); CHOLESTEROL 180 mg/dL (<200); CREATININE - SERUM 0.6 mg/dL (0.6-1.2); GFR AFRICAN-AMERICAN > 60.0 ml/min (>90); GFR NON AFRICAN-AMERICAN > 60.0 ml/min; GLUCOSE 94 mg/dL (70-105); HDL -HIGH DENSITY LIPOPROTEIN 3 mg/dL (23-92); POTASSIUM SERUM 3.4 mEq/L (3.5-5.1); SGOT 109 U/L (13-39); SGPT/ALT 20 U/L (7-52); SODIUM SERUM 136 mEq/L (136-145); TOTAL PROTEIN,SERUM 5.4 gm/dL (6.0-8.3); TRIGLYCERIDES 357 mg/dL (<150)
[2018-02-21] MEDS: Pantoprazole 40 mg EC Tab PO SCH (08:22)
[2018-02-21 08:30] LABS: BAND NEUTROPHILE 15 % (0-10); NEUTROPHILS 78 % (40-80)
[2018-02-21 08:31] LABS: BASOPHIL 0 % (0-3); EOSINOPHIL 0 % (0-5); LYMPHOCYTE 6 % (20-50); MONOCYTE 1 % (2-10)
--- NOTE | 2018-02-21 09:00 | GI Progress Note ---
Subjective - Review of Systems Service Date: 02/21/18 Subjective: Feeling a bit better today, eating solid diet Objective - Results Result Diagrams: 02/21/18 06:00 02/21/18 06:00 Recent Labs: Laboratory Last Values WBC 16.0 Th/cmm (4.8-10.8) H 02/21/18 06:00 RBC 3.09 Mil/cmm (3.80-5.10) L 02/21/18 06:00 Hgb 10.6 gm/dL (12-16) L 02/21/18 06:00 Hct 30.1 % (41.0-60) L 02/21/18 06:00 MCV 97.5 fl (81-100) 02/21/18 06:00 MCH 34.2 pg (27.0-31.0) H 02/21/18 06:00 MCHC Differential 35.1 pg (28.0-36.0) 02/21/18 06:00 RDW 19.7 % (11.5-20.0) 02/21/18 06:00 Plt Count 360 Th/cmm (150-400) 02/21/18 06:00 MPV 7.5 fl 02/21/18 06:00 Add Manual Diff YES 02/21/18 06:00 Band Neutrophils % 15 % (0-10) H 02/21/18 06:00 Neutrophils (Manual) 78 % (40-80) 02/21/18 06:00 Lymphocytes 6 % (20-50) L 02/21/18 06:00 Monocytes 1 % (2-10) L 02/21/18 06:00 Eosinophils 0 % (0-5) 02/21/18 06:00 Basophils 0 % (0-3) 02/21/18 06:00 Platelet Estimate ADEQUATE (NORMAL) 02/20/18 05:45 PT 12.5 SECONDS (9.5-11.5) H 02/20/18 05:45 INR 1.21 (0.5-1.4) 02/20/18 05:45 PTT (Actin FS) 31.0 SECONDS (26.0-38.0) 02/20/18 05:45 D-Dimer 818 ng/mL (100-400) H 02/17/18 19:22 Sodium 136 mEq/L (136-145) 02/21/18 06:00 Potassium 3.4 mEq/L (3.5-5.1) L 02/21/18 06:00 Chloride 106 mEq/L (98-107) 02/21/18 06:00 Carbon Dioxide 23.9 mEq/L (21.0-31.0) 02/21/18 06:00 Anion Gap 9.5 (7.0-16.0) 02/21/18 06:00 BUN 8 mg/dL (7-25) 02/21/18 06:00 Creatinine 0.6 mg/dL (0.6-1.2) 02/21/18 06:00 Est GFR ( Amer) > 60.0 ml/min (>90) 02/21/18 06:00 Est GFR (Non-Af Amer) > 60.0 ml/min 02/21/18 06:00 BUN/Creatinine Ratio 13.3 02/21/18 06:00 Glucose 94 mg/dL (70-105) 02/21/18 06:00 Whole Bld Lactic Acid 1.11 mmol/L (0.60-1.99) 02/17/18 23:00 Calcium 8.1 mg/dL (8.6-10.3) L 02/21/18 06:00 Phosphorus 2.1 mg/dL (2.5-5.0) L 02/17/18 16:57 Magnesium 2.1 mg/dL (1.9-2.7) 02/17/18 16:57 Total Bilirubin 8.2 mg/dL (0.3-1.0) H 02/21/18 06:00 AST 109 U/L (13-39) H 02/21/18 06:00 ALT 20 U/L (7-52) 02/21/18 06:00 Alkaline Phosphatase 190 U/L (34-104) H 02/21/18 06:00 Ammonia 60 umol/L (16-53) H 02/19/18 06:05 Troponin I 0.02 ng/mL (0.01-0.05) 02/17/18 23:00 B-Natriuretic Peptide 125.0 pg/mL (5.0-100.0) H 02/17/18 19:22 Total Protein 5.4 gm/dL (6.0-8.3) L 02/21/18 06:00 Albumin 2.1 gm/dL (3.7-5.3) L 02/21/18 06:00 Globulin 3.3 gm/dL 02/21/18 06:00 Albumin/Globulin Ratio 0.6 (1.0-1.8) L 02/21/18 06:00 Triglycerides 357 mg/dL (<150) H 02/21/18 06:00 Cholesterol 180 mg/dL (<200) 02/21/18 06:00 LDL Cholesterol Direct 125 mg/dL (75-193) 02/21/18 06:00 HDL Cholesterol 3 mg/dL (23-92) L 02/21/18 06:00 Amylase 16 U/L (29-103) L 02/17/18 16:57 Lipase 17 U/L (11-82) 02/17/18 16:57 Urine Source CLEAN C 02/17/18 16:35 Urine Color ORANGE 02/17/18 16:35 Urine Clarity HAZY (CLEAR) 02/17/18 16:35 Urine pH 6.5 (4.6 - 8.0) 02/17/18 16:35 Ur Specific [place] 1.020 (1.005-1.030) 02/17/18 16:35 Urine Protein 100 mg/dL (NEGATIVE) H 02/17/18 16:35 Urine Glucose (UA) 100 mg/dL (NEGATIVE) H 02/17/18 16:35 Urine Ketones 15 mg/dL (NEGATIVE) H 02/17/18 16:35 Urine Blood NEGATIVE (NEGATIVE) 02/17/18 16:35 Urine Nitrate POSITIVE (NEGATIVE) H 02/17/18 16:35 Urine Bilirubin LARGE (NEGATIVE) H 02/17/18 16:35 Urine Ictotest Not Reportable 02/17/18 16:35 Urine Urobilinogen 1.0 E.U./dL (0.2 - 1.0) 02/17/18 16:35 Ur Leukocyte Esterase TRACE (NEGATIVE) H 02/17/18 16:35 Urine RBC 0-2 /hpf (0-5) 02/17/18 16:35 Urine WBC 6-10 /hpf (0-5) H 02/17/18 16:35 Ur Epithelial Cells MODERATE /lpf (FEW) 02/17/18 16:35 Urine Bacteria 3+ /hpf (NONE SEEN) H 02/17/18 16:35 Urine Mucus MODERATE /lpf (FEW) 02/17/18 16:35 Urine Test NEGATIVE 02/17/18 17:40 Urine Opiates Screen NEGATIVE (NEGATIVE) 02/17/18 16:49 Urine Methadone Screen NEGATIVE (NEGATIVE) 02/17/18 16:49 Ur Barbiturates Screen NEGATIVE (NEGATIVE) 02/17/18 16:49 Ur Tricyclics Screen NEGATIVE (NEGATIVE) 02/17/18 16:49 Ur Phencyclidine Scrn NEGATIVE (NEGATIVE) 02/17/18 16:49 Amphetamines Screen NEGATIVE (NEGATIVE) 02/17/18 16:49 U Methamphetamines Scrn NEGATIVE (NEGATIVE) 02/17/18 16:49 U Benzodiazepines Scrn NEGATIVE (NEGATIVE) 02/17/18 16:49 U Cocaine Metab Screen NEGATIVE (NEGATIVE) 02/17/18 16:49 U Cannabinoids Screen NEGATIVE (NEGATIVE) 02/17/18 16:49 Ethyl Alcohol < 10 mg/dL (0-10) 02/17/18 16:57 - Physical Exam Vitals and I&O: Vital Signs Temp 97.9 F 02/21/18 04:00 Pulse 79 02/21/18 04:00 Resp 17 02/21/18 04:00 BP 117/58 02/21/18 04:00 Pulse Ox 98 02/21/18 04:00 Intake & Output 02/20/18 02/21/18 02/21/18 18:59 06:59 18:59 Intake Total 50 Balance 50 Intake: Intake, IV Amount 50 cefTRIAXone 1 gm In 50 Sodium Chloride 0.9% 50 ml @ 100 mls/hr IV Q24HR [facility] Rx#:[id number] Other: Stool Characteristics Formed Active Medications: Current Medications Guaifenesin/Dextromethorphan (Robitussin Dm) 5 ml PO Q6HR PRN PRN Reason: Cough Stop: 04/20/18 15:56 Last Admin: 02/21/18 06:29 Dose: 5 ml Ceftriaxone Sodium 1 gm/ (Sodium Chloride) 50 mls @ 100 mls/hr IV Q24HR [facility] Stop: 04/19/18 20:59 Last Infusion: 02/20/18 22:25 Dose: Infused Ketorolac Tromethamine (Toradol) 30 mg IVP Q6H PRN PRN Reason: Pain (Moderate) Stop: 04/20/18 12:10 Last Admin: 02/21/18 06:28 Dose: 30 mg Ondansetron HCl (Zofran) 4 mg IV Q6H PRN PRN Reason: Nausea / Vomiting Stop: 04/19/18 02:11 Pantoprazole Sodium (Protonix) 40 mg PO DAILY BRAULIO Stop: 04/19/18 13:30 Last Admin: 02/21/18 08:22 Dose: 40 mg Starch (Anusol) 1 sup RC DAILY PRN PRN Reason: Itching Stop: 04/20/18 12:20 General: Alert, Oriented x3, Cooperative HEENT: Atraumatic, PERRLA, EOMI Neck: JVD Cardiovascular: Regular rate Abdomen: Bowel sounds, Soft, Tender, Hepatomegaly, Distended, no Rebound, no Mass, no Guarding Assessment/Plan - Problem List Patient Problems: All Active Problems ABDOMINAL DISTENTION WITH URINE RETENTIO (Acute) - Assessment Assessment: 42 yo F with acute alcoholic hepatitis, likely underlying cirrhosis from alcoholism 1. alcoholic Hepatitis 2. Ascites, small volume 3. Probable underlying Liver Cirrhosis -D/w at length about condition -stop alcohol (most important intervention) -can d/c with small doses of diuretics but ascites will hopefully improve if she abstains from alcohol -empirically on antibiotics, would only recommend a max 7 day course -Jen DF<32 - no role for steroids - low salt diet going forward - hepatology outpt follow up via her PCP and insurance coverage
[2018-02-21] MEDS ORDERED: Potassium Chloride 20 mEq ER Tab PO ONE (09:50)
--- NOTE | 2018-02-22 03:04 | Discharge Summary ---
DATE OF DISCHARGE: 02/21/2018 IDENTIFICATION: A 42-year-old female patient. DATE OF ADMISSION: 02/18/2018. DATE OF DISCHARGE TO HOME: 02/21/2018. PRINCIPAL DIAGNOSES: 1. Abdominal pain, most likely secondary to hepatomegaly. 2. Hepatomegaly, most likely secondary to chronic alcohol use and alcoholic hepatitis. 3. Urinary tract infection. 4. Acute bronchitis. BRIEF STATEMENT FOR THE REASON FOR ADMISSION: A 42-year-old [place] female presented to Emergency Room for evaluation of abdominal pain where the patient was extensively evaluated and noted to have hepatomegaly, ascites and urinary tract infection. The patient was admitted to the hospital for further treatment. Please refer to my H and P for further information. HOSPITAL COURSE: The patient was admitted to med/surg floor. The patient was given IV fluid, IV antibiotic, GI consult. The patient had electrolyte correction. The patient was seen by GI and further workup reveal that the patient had a very minimal ascites, which cannot be drained. After talking to the parachute mender as well as radiologist, who both talked to the patient and explained that very minimal fluid and not a candidate for ultrasound-guided paracentesis, recommended medical management at this time. The patient was advised at this time to be discharged home on p.o. antibiotic along with the pain medication and proton pump inhibitor and have outpatient followup with metal furrer and have followup ultrasound to be done in 2 weeks. If there is significant ascites, the patient can have paracentesis. At this time, the patient does not need anything. The patient has been informed of recurrent symptoms. The patient should go to Emergency Room or call 911. [facility]# [id number]
--- NOTE | 2018-02-22 04:07 | Progress Notes ---
DATE: 02/21/2018 SUBJECTIVE: The patient was seen and examined. No new event. PHYSICAL EXAMINATION: VITAL SIGNS: See nurse's note. HEENT: Poor dentition. NECK: Supple. HEART: Regular. LUNGS: Clear. ABDOMEN: Soft, tender, hepatomegaly noted. Bowel sounds are present. EXTREMITIES: No edema. CLINICAL IMPRESSION: 1. Abdominal pain secondary to hepatomegaly. 2. Alcoholic hepatitis. 3. Urinary tract infection. 4. Acute bronchitis. PLAN: Discharged home on p.o. antibiotic along with pain medicine with Voltaren and proton pump inhibitor. The patient is advised to see lobby attendant in 1 week. JOB# [id number]
== END 2018-02-21 17:11 | disposition home or self-care (01) | DRG 720 ==
LOC: ER 16:15 → MSI 02-18 01:10
PROVIDERS: ADMIT Internal Medicine; ATTEND Internal Medicine
DX: A41.9 Sepsis, unspecified organism (principal); K65.2 Spontaneous bacterial peritonitis; K70.11 Alcoholic hepatitis with ascites; E87.8 Other disorders of electrolyte and fluid balance, not elsewhere classified; K70.31 Alcoholic cirrhosis of liver with ascites; K72.90 Hepatic failure, unspecified without coma; D64.9 Anemia, unspecified; R16.0 Hepatomegaly, not elsewhere classified; N39.0 Urinary tract infection, site not specified; K59.00 Constipation, unspecified; M19.90 Unspecified osteoarthritis, unspecified site; J20.9 Acute bronchitis, unspecified; F10.10 Alcohol abuse, uncomplicated; E87.6 Hypokalemia
CPT/HCPCS: 36415-UA; 71045-TC; 71275-TC; 80053-TC; 80061-TC; 80307; 80320-TC; 81001-TC; 81025-TC; 82140-TC; 82150-TC; 82948-90; 83605; 83690-TC; 83735-TC; 83880-TC; 84100-TC; 84484-TC; 85007-TC; 85025-TC; 85379-TC; 85610-TC; 87086-90; 93005; 96375; J0696; J0744; J1885; J2405; J3411; J3475; J7030; Q9967; X6226; X6598; Z7610